=== PATIENT | female | born 1975 | race Two or more races ===

== ENCOUNTER 2016-04-26 19:57 | Emergency (ER) | payer MEDICAID, OTHER ==
[~2016-04-26] VITALS: Ht 170.2 cm; Wt 127.0 kg
[~2016-04-26 19:57] MED LIST: ADVIL200 M2 ORAL; ALBUTEROL SULF8.5 GM INH; AZITHROMYCIN250 MG ORAL; CLARITIN10 MG ORAL; IBUPROFEN600 MG ORAL; NAPHCON-A EYE D15 ML OP; NKM; NORCO 5-325 TA1 EACH PO; PENICILLIN V P250 MG PO; POLYTRIM OP SOL10 ML OPHTHALM; PREDNISONE20 MG ORAL; ZOFRAN4 MG ORAL
[2016-04-26 20:56] VITALS: BP 126/84
[2016-04-26] MEDS ORDERED: PREDNISONE20 MG ORAL (21:09)
[2016-04-26] MEDS ORDERED: ALBUTEROL SULF8.5 GM INH (21:09)
[2016-04-26] MEDS ORDERED: PROMETHAZINE-C118 M1 ORAL (21:09)
[2016-04-26] MEDS ORDERED: AZITHROMYCIN250 MG ORAL (21:09)
[2016-04-26 21:10] VITALS: BP 126/84
--- NOTE | 2016-04-27 03:58 | Emergency Room Report ---
History of Present Illness General Chief Complaint: Upper Respiratory Illness Source: Patient Present Illness HPI 41-year-old female presents ED complaining of cough x3 weeks. States cough is productive with yellowish phlegm. States she is trying multiple over-the- counter medications without relief. Notes intermittent fevers and chills. Denies shortness of breath. Denies ear ache or sore throat. Notes soreness in chest worse with coughing. Pain is 7/10, dull, nonradiating. No other aggravating or relieving factors. Denies any other associated symptoms Allergies: Coded Allergies: No Known Allergies (Unverified , 02/19/13) Patient History Past Medical History: none Past Surgical History: none Pertinent Family History: none Social History: Denies: alcohol use, drug use, smoking Last Menstrual Period: 04/01/16 Now: No Immunizations: UTD Reviewed Nursing Documentation: PMH: Agreed, PSxH: Agreed Nursing Documentation-PMH Past Medical History: No Stated History Review of Systems All Other Systems: negative except mentioned in HPI Physical Exam Vital Signs Date Time Temp Pulse Resp B/P Pulse Ox O2 Delivery O2 Flow Rate FiO2 04/26/16 20:55 98.2 87 17 126/84 96 Room Air Sp02 EP Interpretation: reviewed, normal General Appearance: no apparent distress, alert, GCS 15, non-toxic Head: normocephalic, atraumatic Eyes: bilateral eye PERRL, bilateral eye normal inspection ENT: hearing grossly normal, normal pharynx, no angioedema, normal voice Neck: full range of motion, supple/symm/no masses Respiratory: chest non-tender, lungs clear, normal breath sounds, speaking full sentences Cardiovascular #1: regular rate, rhythm, no edema Cardiovascular #2: 2+ carotid (R), 2+ carotid (L), 2+ radial (R), 2+ radial (L) , 2+ dorsalis pedis (R), 2+ dorsalis pedis (L) Gastrointestinal: normal bowel sounds, non tender, soft, non-distended, no guarding, no rebound Rectal: deferred Genitourinary: normal inspection, no CVA tenderness Musculoskeletal: back normal, gait/station normal, normal range of motion, non- tender Neurologic: alert, oriented x3, responsive, motor strength/tone normal, sensory intact, speech normal Psychiatric: judgement/insight normal, memory normal, mood/affect normal, no suicidal/homicidal ideation Reflexes: 3+ bicep (R), 3+ bicep (L), 3+ tricep (R), 3+ tricep (L), 3+ knee (R) , 3+ knee (L) Skin: normal color, no rash, warm/dry, well hydrated Lymphatic: no adenopathy Medical Decision Making Diagnostic Impression: Primary Impression: Atypical pneumonia ER Course Hospital Course 41-year-old female presents to ED complaining of cough x 3 weeks Differential diagnoses include: URI, pharyngitis, otitis media, asthma Clinical course Patient placed on stretcher. After initial history, physical exam reveals a female in no acute distress. Bilateral TM unremarkable. No pharyngeal erythema. No tonsillar exudates. No lymphadenopathy. lungs clear. abdomen soft. Given persistent symptoms x3 weeks we will treat his atypical pneumonia Diagnosis - atypical pneumonia Stable and discharged home with Rx Lalitha. Instructed to followup with PMD. Return to ED if symptoms recur or worsen Last Vital Signs Date Time Temp Pulse Resp B/P Pulse Ox O2 Delivery O2 Flow Rate FiO2 04/26/16 20:55 98.2 87 17 126/84 96 Room Air Status: improved Disposition: HOME, SELF-CARE Condition: Stable Scripts Codeine/Promethazine Hcl* (PROMETHAZINE-CODEINE SYRUP*) 118 Ml Syrup 5 ML ORAL Q6H Y for For Cough, #118 ML 0 Refills Prov: DEVONTE COE M.D. 04/26/16 Prednisone* (PREDNISONE*) 20 Mg Tablet 40 MG ORAL DAILY, #10 TAB Prov: DEVONTE COE M.D. 04/26/16 Albuterol Sulfate* (ALBUTEROL SULFATE MDI*) 8.5 Gm Hfa.aer.ad 2 PUFF INH Q6H, #1 EA 0 Refills Prov: DEVONTE COE M.D. 04/26/16 Azithromycin* (ZITHROMAX*) 250 Mg Tablet 250 MG ORAL DAILY, #6 TAB 0 Refills Take two tablets by mouth today, then take one tablet by mouth daily for four days Prov: DEVONTE COE M.D. 04/26/16 Referrals: [facility]ERR[facility] (PCP) Patient Instructions: Community-Acquired Pneumonia, Adult, [id number] DEVONTE COE M.D. Apr 27, 2016 03:58
== END 2016-04-26 21:10 | disposition home or self-care (01) ==
LOC: EMR 21:03
DX: J18.9 Pneumonia, unspecified organism (principal)
CPT/HCPCS: 99284

== ENCOUNTER 2016-12-24 18:50 | Emergency (ER) | payer MEDICAID, OTHER ==
[~2016-12-24] VITALS: Ht 170.2 cm; Wt 127.0 kg
[~2016-12-24 18:50] MED LIST changes: +PROMETHAZINE-C118 M1 ORAL
[2016-12-24] MEDS ORDERED: LORATADINE10 M2 PO (19:45)
[2016-12-24] MEDS ORDERED: BROMFED DM COU118 ML PO (19:45)
[2016-12-24] MEDS ORDERED: ALBUTEROL SULF8.5 GM INH (19:45)
[2016-12-24] MEDS ORDERED: FLONASE ALLERG9.9 ML NS (19:45)
--- NOTE | 2016-12-24 19:46 | Emergency Room Report ---
History of Present Illness General Chief Complaint: Upper Respiratory Illness Source: Patient Present Illness HPI 41 y/o female c/o URI sxs x several days. Assoc sxs include nasal congestion, rhinorrhea, sore throat, post nasal drip, bodyaches, chills, and cough due to tickle in the throat. States they have take robitussin without improvement of symptoms. Denies any current n/v/f/c/d, abd pain, back pain, neck pain, photophobia, phonophobia, CP, SOB or headache. Allergies: Coded Allergies: No Known Allergies (Unverified , 02/19/13) Patient History Past Medical History: see triage record Past Surgical History: none Pertinent Family History: none Last Menstrual Period: dec 18 Now: No Immunizations: UTD Reviewed Nursing Documentation: PMH: Agreed, PSxH: Agreed Nursing Documentation-PMH Past Medical History: No Stated History Review of Systems All Other Systems: negative except mentioned in HPI Physical Exam Vital Signs Date Time Temp Pulse Resp B/P (MAP) Pulse Ox O2 Delivery O2 Flow Rate FiO2 12/24/16 18:58 98.2 97 16 134/77 95 Room Air Sp02 EP Interpretation: reviewed, normal General Appearance: no apparent distress, alert, GCS 15, non-toxic Head: normocephalic, atraumatic Eyes: bilateral eye normal inspection, bilateral eye PERRL ENT: hearing grossly normal, normal pharynx, no angioedema, normal voice Neck: full range of motion, supple/symm/no masses Respiratory: chest non-tender, lungs clear, normal breath sounds, speaking full sentences, other - mild wheeze present Cardiovascular #1: regular rate, rhythm, no edema Musculoskeletal: digits/nails normal, gait/station normal Neurologic: alert, oriented x3, responsive, motor strength/tone normal, sensory intact, speech normal Psychiatric: judgement/insight normal, memory normal, mood/affect normal, no suicidal/homicidal ideation Medical Decision Making PA Attestation Dr. Fine is my supervising physician with whom patient management has been discussed with. Diagnostic Impression: Primary Impression: URI with cough and congestion ER Course Pt. presents to the ED c/o of cough and congestion Ddx considered but are not limited to bronchitis, pneumonia, viral upper respiratory tract infection Vital signs: are WNL, pt. is afebrile H&PE are most consistent with viral upper respiratory tract infection ORDERS: none required at this time, the diagnosis is clinical ED INTERVENTIONS: None required at this time. DISCHARGE: At this time pt. is stable for d/c to home. Will provide printed patient care instructions, and any necessary prescriptions. Care plan and follow up instructions have been discussed with the patient prior to discharge. Last Vital Signs Date Time Temp Pulse Resp B/P (MAP) Pulse Ox O2 Delivery O2 Flow Rate FiO2 12/24/16 18:58 98.2 97 16 134/77 95 Room Air Disposition: HOME, SELF-CARE Condition: Stable Scripts D-Methorphan Hb/P-Epd Hcl/Bpm (BROMFED DM COUGH SYRUP) 118 Ml Syrup 5 ML PO QHS for 10 Days, #120 ML Prov: CHRISTA VARGAS.A. 12/24/16 Loratadine (LORATADINE) 10 Mg Tablet 10 MG PO DAILY for 14 Days, #14 TAB Prov: CHRISTA VARGAS.A. 12/24/16 Fluticasone Propionate (Flonase Allergy Relief) 9.9 Ml [place].susp 2 SPRAYS NS DAILY for 7 Days, #10 ML Prov: CHRISTA VARGAS.A. 12/24/16 Albuterol Sulfate* (ALBUTEROL SULFATE MDI*) 8.5 Gm Hfa.aer.ad 2 PUFF INH Q4H, #1 INH 0 Refills Prov: CHRISTA VARGAS P.A. 12/24/16 Patient Instructions: Upper Respiratory Infection, Adult Additional Instructions: Take medication as directed. Drink plenty of fluids which include Gatorade and water. Get plenty of rest. Avoid taking medications on an empty stomach. If you have cough avoid dairy and cold beverages. If you have a fever, headache or body aches please take [id number] tylenol/motrin/advil unless a prescription for these symptoms have been given. If your symptoms are worsening or you have shortness or breath, severe headaches or chest pain, please call 911 or go to the ER. CHRISTA VARGAS Dec 24, 2016 19:46
[2016-12-24 19:54] VITALS: BP 134/77
[2016-12-24 20:06] VITALS: BP 134/77
== END 2016-12-24 20:10 | disposition home or self-care (01) ==
LOC: EMR 20:08
DX: J06.9 Acute upper respiratory infection, unspecified (principal)
CPT/HCPCS: 99284

== ENCOUNTER 2017-01-21 12:09 | Emergency (ER) | payer MEDICAID, OTHER ==
[~2017-01-21] VITALS: Ht 170.2 cm; Wt 127.0 kg
[~2017-01-21 12:09] MED LIST changes: +BROMFED DM COU118 ML PO; +FLONASE ALLERG9.9 ML NS; +LORATADINE10 M2 PO
[2017-01-21] MEDS ORDERED: Albuterol ud Inhalation HHN ONE (12:30)
[2017-01-21] MEDS ORDERED: Ipratropium 0.02% Inh Soln 2.5ml UD HHN ONE (12:30)
[2017-01-21] MEDS ORDERED: PROMETHAZINE-C118 M1 ORAL (13:14)
[2017-01-21] MEDS ORDERED: PREDNISONE20 MG ORAL (13:14)
[2017-01-21] MEDS ORDERED: PROAIR HFA8.5 GM INH (13:14)
[2017-01-21 13:22] VITALS: BP 157/87
[2017-01-21 13:23] VITALS: BP 157/87
--- NOTE | 2017-01-21 14:44 | Emergency Room Report ---
History of Present Illness General Chief Complaint: Upper Respiratory Illness Source: Patient (ANDREW MENDOSA) Present Illness HPI The patient is a 41-year-old female presenting for wheezing and cough for the past 3 weeks. She denies history of asthma but states that she has been diagnosed with bronchitis this past year in symptoms have persisted on and off. She denies any sick contacts recent travel. She denies any fever or chills or other complaints including N, V, abd pain, rash (ANDREW MENDOSA.Marianne) Allergies: Coded Allergies: No Known Allergies (Unverified , 02/19/13) Patient History Past Medical History: see triage record Pertinent Family History: none Last Menstrual Period: 01/15/17 Now: No Reviewed Nursing Documentation: PMH: Agreed, PSxH: Agreed (ANDREW MENDOSA) Nursing Documentation-PMH Past Medical History: No Stated History (ANDREW MENDOSA) Review of Systems All Other Systems: negative except mentioned in HPI (ANDREW MENDOSA) Physical Exam Vital Signs Date Time Temp Pulse Resp B/P (MAP) Pulse Ox O2 Delivery O2 Flow Rate FiO2 01/21/17 12:15 98.1 121 22 145/60 98 Room Air Sp02 EP Interpretation: reviewed, normal General Appearance: no apparent distress, alert, GCS 15, non-toxic Head: normocephalic, atraumatic Eyes: bilateral eye normal inspection, bilateral eye PERRL ENT: hearing grossly normal, normal pharynx, no angioedema, normal voice Neck: full range of motion, supple/symm/no masses Respiratory: decreased breath sounds, wheezing Cardiovascular #1: regular rate, rhythm, no edema Gastrointestinal: normal bowel sounds, non tender, soft, non-distended, no guarding, no rebound Musculoskeletal: back normal, gait/station normal, normal range of motion, non- tender Neurologic: alert, oriented x3, responsive, motor strength/tone normal, sensory intact, speech normal Psychiatric: judgement/insight normal, memory normal, mood/affect normal, no suicidal/homicidal ideation Skin: normal color, no rash, warm/dry, well hydrated (ANDREW MENDOSA) Medical Decision Making PA Attestation Dr. Santamaria is my supervising physician. Patient management was discussed with my supervising physician (ANDREW MENODSA) Diagnostic Impression: Primary Impression: Asthma Qualified Codes: J45.901 - Unspecified asthma with (acute) exacerbation ER Course The patient is a 41-year-old female presenting for wheezing and cough for the past 3 weeks Differential diagnoses considered but not limited to: Asthma exacerbation, bronchitis, pneumonia, anxiety Physical exam: Afebrile. Pt is tachycardic. No apparent distress HEENT exam is unremarkable Lungs: Decreased breath sounds bilaterally with some wheezing. Chest is nontender. No respiratory distress. No accessory muscle use. The patient was given a breathing treatment and is feeling much better. Lungs sounds have improved. CXR unremarkable Patient is discharged home with a prescription for albuterol, short course of oral steroids, and cough med and will followup with PMD. ER precautions are given (ANDREW MENDOSA) Chest X-Ray Diagnostic Results Chest X-Ray Diagnostic Results : Chest X-Ray Ordered: Yes # of Views/Limited/Complete: 1 View Indication: Other - cough EP Interpretation: Yes PA Xray: Interpretation reviewed, by supervising MD, and agrees with findings. Interpretation: no consolidation, no effusion, no pneumothorax, no acute cardiopulmonary disease Impression: No acute disease Electronically Signed by: Andrew Mendosa PA-C (ANDREW MENDOSA) Chest X-Ray Diagnostic Results : Electronically Signed by: Rochelle documentation reviewed by me and is accurate, Jorge Santamaria MD. (Jorge Santamaria M.D.) Last Vital Signs Date Time Temp Pulse Resp B/P (MAP) Pulse Ox O2 Delivery O2 Flow Rate FiO2 01/21/17 13:23 98.1 124 19 157/87 97 Room Air Status: improved (ANDREW MENDOSA P.A.) Disposition: HOME, SELF-CARE Condition: Improved Scripts Codeine/Promethazine Hcl* (PROMETHAZINE-CODEINE SYRUP*) 118 Ml Syrup 5 ML ORAL Q6H Y for For Cough, #118 ML 0 Refills Prov: TERZIANJIMMIEY P.A. 01/21/17 Prednisone* (PREDNISONE*) 20 Mg Tablet 40 MG ORAL DAILY, #8 TAB Prov: TERZIANJIMMIEY P.A. 01/21/17 Albuterol Sulfate* (PROAIR HFA*) 8.5 Gm Hfa.aer.ad 2 PUFFS INH Q6H, #8.5 GM 0 Refills Prov: ANDREW MENDOSA 01/21/17 Patient Instructions: Asthma, Adult Additional Instructions: I discussed my findings with the patient. All questions and concerns have been answered. Treatment and medication compliance have been addressed. I advised the patient that they need to follow up with PMD in 3-5 days. Return to ED if symptoms worsen, new symptoms arise, or if needed for any reason. Patient verbalized understanding of discharge instructions. ANDREW MENDOSA Jan 21, 2017 14:44 Jorge Santamaria M.D. Jan 23, 2017 23:08
--- NOTE | 2017-01-22 10:10 | Diagnostic Imaging Report ---
Indication: COUGH Technique: XRAY CHEST 1 V Comparison: 01/19/2014. Findings: The cardiomediastinal silhouette is normal. The lungs are clear. There is no evidence of pleural fluid. The bones are unremarkable. Impression: Normal chest.
== END 2017-01-21 13:22 | disposition home or self-care (01) ==
LOC: EMR 12:37
DX: J45.909 Unspecified asthma, uncomplicated (principal)
CPT/HCPCS: 71010; 99284

== ENCOUNTER 2017-01-25 14:07 | Emergency (ER) | payer OTHER ==
[~2017-01-25] VITALS: Ht 170.2 cm; Wt 127.0 kg
[~2017-01-25 14:07] MED LIST changes: +PROAIR HFA8.5 GM INH
[2017-01-25 14:40] VITALS: BP 117/73
--- NOTE | 2017-01-25 14:42 | Emergency Room Report ---
History of Present Illness General Chief Complaint: Upper Respiratory Illness Source: Patient Present Illness HPI 41-year-old female presents emergency department complaining of cough, feeling short of breath, fevers, wheezing and pain in the chest area since Monday. Patient has been taking prescription cough syrup, inhaler and oral prednisone for URI symptoms. Patient states that today she had a syncopal episode she felt lightheaded at work and fainted. Patient denies neck or back pain. Patient reports continued feeling dizzy and lightheaded Pt. reports decrease in appetite since feeling sick. reports chills. states she has productive cough on occasion. denies recent head trauma or fall, denies dysuria, frequency, low back pain or . Denies hx of anemia. Denies Palpitations, LOC, AMS, dizziness, Changes in Vision, Sensation, paresthesias, or a sudden severe headache. Allergies: Coded Allergies: No Known Allergies (Unverified , 02/19/13) Patient History Past Medical History: none Past Surgical History: none Pertinent Family History: none Now: No Reviewed Nursing Documentation: PMH: Agreed, PSxH: Agreed Nursing Documentation-PMH Past Medical History: No Stated History Review of Systems All Other Systems: negative except mentioned in HPI Physical Exam Vital Signs Date Time Temp Pulse Resp B/P (MAP) Pulse Ox O2 Delivery O2 Flow Rate FiO2 01/25/17 14:13 98.1 90 19 117/73 96 Room Air Sp02 EP Interpretation: reviewed, normal General Appearance: no apparent distress, alert, GCS 15, non-toxic Head: normocephalic, atraumatic Eyes: bilateral eye normal inspection, bilateral eye PERRL ENT: hearing grossly normal, normal voice Neck: full range of motion Respiratory: chest non-tender, lungs clear, normal breath sounds, wheezing Cardiovascular #1: regular rate, rhythm Gastrointestinal: non tender, soft Rectal: deferred Genitourinary: normal inspection, no CVA tenderness Musculoskeletal: back normal, gait/station normal, normal range of motion, non- tender Neurologic: alert, oriented x3, responsive, motor strength/tone normal, sensory intact, normal gait, speech normal, no pronator, grossly normal Skin: no rash, warm/dry, pallor - Pt is pale Lymphatic: no adenopathy Medical Decision Making PA Attestation Dr. coelho is my supervising Physician whom patient management has been discussed with. Diagnostic Impression: Primary Impression: Atypical pneumonia ER Course 41-year-old female presents emergency department complaining of cough, feeling short of breath, fevers, wheezing and pain in the chest area since Monday. Patient has been taking prescription cough syrup, inhaler and oral prednisone for URI symptoms. Patient states that today she had a syncopal episode she felt lightheaded at work and fainted. Patient denies neck or back pain. Patient reports continued feeling dizzy and lightheaded Pt. reports decrease in appetite since feeling sick. reports chills. states she has productive cough on occasion. denies recent head trauma or fall, denies dysuria, frequency, low back pain or . Denies hx of anemia. Denies Palpitations, LOC, AMS, dizziness, Changes in Vision, Sensation, paresthesias, or a sudden severe headache. Ddx considered but are not limited to PNA, Bronchitis, dehydration, dysrhythmia , hypoglycemia, hypovolemia, intracranial process, vasovagal. Vital signs: are WNL, pt. is afebrile H&PE are most consistent with atypical pneumonia will do ekg, cxr and give fluids and breathing treatmetn. ORDERS: -12-lead EKG:-: 85 BPM NSR - no acute ST changes reviewed by Dr. De Anda , this interpretation was scribed by DORINDA Banks -CBC, CMP: Unremarkable/ WNL -CXR: WNL ED INTERVENTIONS: -1000 mL normal saline bolus IV - Albuterol HHN -Xopidex HHN -Prednisone 60mg PO DISCHARGE: At this time pt. is stable for d/c to home. Will provide printed patient care instructions, and any necessary prescriptions. Care plan and follow up instructions have been discussed with the patient prior to discharge. Labs Test 01/25/17 15:30 White Blood Count 7.2 K/UL (4.8-10.8) Red Blood Count 4.95 M/UL (4.20-5.40) Hemoglobin 14.6 G/DL (12.0-16.0) Hematocrit 47.6 % (37.0-47.0) Mean Corpuscular Volume 96 FL (80-99) Mean Corpuscular Hemoglobin 29.5 PG (27.0-31.0) Mean Corpuscular Hemoglobin Concent 30.7 G/DL (32.0-36.0) Red Cell Distribution Width 12.8 % (11.6-14.8) Platelet Count 145 K/UL (150-450) Mean Platelet Volume 12.3 FL (6.5-10.1) Neutrophils (%) (Auto) 68.2 % (45.0-75.0) Lymphocytes (%) (Auto) 22.0 % (20.0-45.0) Monocytes (%) (Auto) 8.1 % (1.0-10.0) Eosinophils (%) (Auto) 0.1 % (0.0-3.0) Basophils (%) (Auto) 1.5 % (0.0-2.0) Sodium Level 141 MMOL/L (136-145) Potassium Level 3.9 MMOL/L (3.5-5.1) Chloride Level 104 MMOL/L (98-107) Carbon Dioxide Level 28 MMOL/L (21-32) Anion Gap 9 mmol/L (5-15) Blood Urea Nitrogen 13 mg/dL (7-18) Creatinine 0.8 MG/DL (0.55-1.30) Estimat Glomerular Filtration Rate > 60 mL/min (>60) Glucose Level 132 MG/DL (74-106) Calcium Level 9.0 MG/DL (8.5-10.1) Total Bilirubin 0.5 MG/DL (0.2-1.0) Aspartate Amino Transf (AST/SGOT) 49 U/L (15-37) Alanine Aminotransferase (ALT/SGPT) 56 U/L (12-78) Alkaline Phosphatase 101 U/L (46-116) Total Protein 7.3 G/DL (6.4-8.2) Albumin 2.9 G/DL (3.4-5.0) Globulin 4.4 g/dL Albumin/Globulin Ratio 0.7 (1.0-2.7) EKG Diagnostic Results Rate: normal Rhythm: NSR ST Segments: no acute changes ASA given to the pt in ED: No PA Scribe Text - EK BPM NSR - no acute ST changes reviewed by Dr. De Anda , this interpretation was scribed by DORINDA Banks Last Vital Signs Date Time Temp Pulse Resp B/P (MAP) Pulse Ox O2 Delivery O2 Flow Rate FiO2 12/13/17 14:13 98.1 90 19 117/73 96 Room Air Disposition: HOME, SELF-CARE Condition: Stable Scripts Albuterol Sulfate* (ALBUTEROL SULFATE MDI*) 8.5 Gm Hfa.aer.ad 2 PUFF INH Q4H, #1 INH 0 Refills Prov: Mini Banks 01/25/17 Ibuprofen* (MOTRIN*) 400 Mg Tablet 400 MG ORAL THREE TIMES A DAY, #20 TAB 0 Refills Prov: Mini Banks 01/25/17 Azithromycin* (ZITHROMAX*) 250 Mg Tablet 250 MG ORAL DAILY, #6 TAB Prov: Mini Banks 01/25/17 Patient Instructions: Upper Respiratory Infection, Adult Additional Instructions: Take medications as directed. Follow up with a Primary Care Provider in 3-5 days, even if your symptoms have resolved. --Please review list of primary care clinics, if you do not already have a primary care provider Return sooner to ED if new symptoms occur, or current symptoms become worse. - Please note that this Emergency Department Report was dictated using [employer] technology software, occasionally this can lead to erroneous entry secondary to interpretation by the dictation equipment. Mini Banks Jan 25, 2017 14:42
[2017-01-25 16:16] LABS: BASOPHILS % (AUTO) 1.5 % (0.0-2.0); EOSINOPHILS % (AUTO) 0.1 % (0.0-3.0); MEAN CORPUSCULAR HEMOGLOBIN 29.5 PG (27.0-31.0); MEAN CORPUSCULAR HGB CONC 30.7 G/DL (32.0-36.0); MEAN CORPUSCULAR VOLUME 96 FL (80-99); MEAN PLATELET VOLUME 12.3 FL (6.5-10.1); MONOCYTES % (AUTO) 8.1 % (1.0-10.0); NEUTROPHILS % (AUTO) 68.2 % (45.0-75.0); PLATELET COUNT 145 K/UL (150-450); RED BLOOD COUNT 4.95 M/UL (4.20-5.40); RED CELL DISTRIBUTION WIDTH 12.8 % (11.6-14.8); WHITE BLOOD COUNT 7.2 K/UL (4.8-10.8)
[2017-01-25 16:21] LABS: ANION GAP 9 mmol/L (5-15); CARBON DIOXIDE 28 MMOL/L (21-32); CHLORIDE 104 MMOL/L (98-107); CREATININE 0.8 MG/DL (0.55-1.30); GLOMERULAR FILTRATION RATE > 60 mL/min (>60); POTASSIUM 3.9 MMOL/L (3.5-5.1); SODIUM 141 MMOL/L (136-145)
[2017-01-25 16:26] LABS: ALANINE AMINOTRANSFERASE 56 U/L (12-78); ALBUMIN/GLOBULIN RATIO 0.7 (1.0-2.7); ASPARTATE AMINO TRANSFERASE 49 U/L (15-37); TOTAL PROTEIN 7.3 G/DL (6.4-8.2)
[2017-01-25] MEDS ORDERED: Albuterol ud Inhalation HHN ONE (17:30)
[2017-01-25] MEDS ORDERED: ZITHROMAX250 MG ORAL (17:45)
[2017-01-25] MEDS ORDERED: ALBUTEROL SULF8.5 GM INH (17:45)
[2017-01-25] MEDS ORDERED: IBUPROFEN400 MG ORAL (17:45)
[2017-01-25] MEDS ORDERED: Levalbuterol Inh UD 1.25mg/0.5ml HHN ONE (18:15)
[2017-01-25 19:09] VITALS: BP 122/75
--- NOTE | 2017-01-26 05:02 | Diagnostic Imaging Report ---
Indication: Chest pain Technique: One view of the chest Comparison: 01/21/2017 Findings: Body habitus limits evaluation. Lung bases are clear. The heart size is normal. No significant change Impression: No acute process
--- NOTE | 2017-02-06 19:23 | Cardiology Report ---
APPROVED REPORT EKG Measurement Heart [id number] Normal sinus rhythm Normal ECG
== END 2017-01-25 19:09 | disposition home or self-care (01) ==
LOC: EMR 14:30
DX: J18.9 Pneumonia, unspecified organism (principal)
CPT/HCPCS: 36415; 71010; 80053; 85025; 93005; 94640; 94664; 96360; 99284; J7644

== ENCOUNTER 2017-07-06 20:07 | Emergency (ER) | payer OTHER ==
[~2017-07-06] VITALS: Ht 170.2 cm; Wt 127.0 kg
[~2017-07-06 20:07] MED LIST changes: +IBUPROFEN400 MG ORAL; +ZITHROMAX250 MG ORAL
[2017-07-06] MEDS ORDERED: Albuterol ud Inhalation HHN ONE (20:30)
[2017-07-06] MEDS ORDERED: Ipratropium 0.02% Inh Soln 2.5ml UD HHN ONE (20:30)
[2017-07-06] MEDS ORDERED: ALBUTEROL SULF8.5 GM INH (21:07)
[2017-07-06] MEDS ORDERED: PROMETHAZINE-C118 M1 ORAL (21:07)
[2017-07-06] MEDS ORDERED: PREDNISONE20 MG ORAL (21:07)
[2017-07-06 21:24] VITALS: BP 132/89
[2017-07-06 21:25] VITALS: BP 134/86
--- NOTE | 2017-07-06 21:38 | Emergency Room Report ---
History of Present Illness General Chief Complaint: Upper Respiratory Illness Source: Patient Present Illness HPI 42-year-old female presents ED complaining of cough and wheezing times one day. Cough is dry. History of asthma. Denies fevers or chills. Denies chest pain. Denies sick contacts or recent travel. No other aggravating relieving factors. Denies any other associated symptoms Allergies: Coded Allergies: No Known Allergies (Unverified , 07/06/17) Patient History Past Medical History: asthma Past Surgical History: none Pertinent Family History: none Social History: Denies: smoking, alcohol use, drug use Last Menstrual Period: 06/08/2017 Now: No Immunizations: UTD Reviewed Nursing Documentation: PMH: Agreed; PSxH: Agreed Nursing Documentation-PMH Past Medical History: No Stated History Review of Systems All Other Systems: negative except mentioned in HPI Physical Exam Vital Signs Date Time Temp Pulse Resp B/P (MAP) Pulse Ox O2 Delivery O2 Flow Rate FiO2 07/06/17 20:10 98.1 103 16 134/86 95 98.1 07/06/17 20:24 Room Air Sp02 EP Interpretation: reviewed, normal General Appearance: no apparent distress, alert, GCS 15, non-toxic, obese Head: normocephalic, atraumatic Eyes: bilateral eye normal inspection, bilateral eye PERRL ENT: hearing grossly normal, normal pharynx, no angioedema, normal voice Neck: full range of motion, supple/symm/no masses Respiratory: chest non-tender, speaking full sentences, wheezing Cardiovascular #1: regular rate, rhythm, no edema Cardiovascular #2: 2+ carotid (R), 2+ carotid (L), 2+ radial (R), 2+ radial (L) , 2+ dorsalis pedis (R), 2+ dorsalis pedis (L) Gastrointestinal: normal bowel sounds, non tender, soft, non-distended, no guarding, no rebound Rectal: deferred Genitourinary: normal inspection, no CVA tenderness Musculoskeletal: back normal, gait/station normal, normal range of motion, non- tender Neurologic: alert, oriented x3, responsive, motor strength/tone normal, sensory intact, speech normal Psychiatric: judgement/insight normal, memory normal, mood/affect normal, no suicidal/homicidal ideation Reflexes: 3+ bicep (R), 3+ bicep (L), 3+ tricep (R), 3+ tricep (L), 3+ knee (R) , 3+ knee (L) Skin: normal color, no rash, warm/dry, well hydrated Lymphatic: no adenopathy Medical Decision Making Diagnostic Impression: Primary Impression: Upper respiratory infection Qualified Codes: J06.9 - Acute upper respiratory infection, unspecified ER Course Hospital Course 42-year-old female presents to ED complaining of cough, wheezing Differential diagnoses include: URI, bronchitis, asthma/COPD, pneumonia Clinical course Patient placed on stretcher. After initial history and physical I ordered prednisone and nebulizer treatment. Upon reassessment patient states cough and symptoms have improved. patient is safe for discharge Diagnosis - URI Stable and discharged home with prescriptions for Rx prednisone, promethazine/ codeine, albuterol. Instructed to followup with PMD. Return to ED if symptoms recur or worsen Last Vital Signs Date Time Temp Pulse Resp B/P (MAP) Pulse Ox O2 Delivery O2 Flow Rate FiO2 07/06/17 21:25 98.1 18 134/86 99 Room Air 98.1 07/06/17 21:24 88 Status: improved Disposition: HOME, SELF-CARE Condition: Stable Scripts Codeine/Promethazine Hcl* (PROMETHAZINE-CODEINE SYRUP*) 118 Ml Syrup 5 ML ORAL Q6H PRN for For Cough, #118 ML 0 Refills Prov: Vic De Anda MD 07/06/17 Prednisone* (PREDNISONE*) 20 Mg Tablet 40 MG ORAL DAILY, #10 TAB Prov: Vic De Anda MD 07/06/17 Albuterol Sulfate* (ALBUTEROL SULFATE MDI*) 8.5 Gm Hfa.aer.ad 2 PUFF INH Q6H, #1 EA 0 Refills Prov: Vic De Anda MD 07/06/17 Referrals: [facility]ERR[facility] (PCP) Patient Instructions: Upper Respiratory Infection, Adult Vic De Anda MD July 06, 2017 21:38
== END 2017-07-06 21:26 | disposition home or self-care (01) ==
LOC: EMR 20:23
DX: J06.9 Acute upper respiratory infection, unspecified (principal)
CPT/HCPCS: 94640; 94664; 99284; J7512

== ENCOUNTER 2017-07-29 23:42 | Emergency (ER) | payer MEDICAID, OTHER ==
[~2017-07-29] VITALS: Ht 170.2 cm; Wt 127.0 kg
[2017-07-30] MEDS ORDERED: Ipratropium 0.02% Inh Soln 2.5ml UD HHN ONE
[2017-07-30] MEDS ORDERED: Albuterol ud Inhalation HHN ONE
[2017-07-30 00:34] VITALS: BP 139/82
[2017-07-30] MEDS ORDERED: ALBUTEROL SULF8.5 GM INH (00:44)
[2017-07-30] MEDS ORDERED: PREDNISONE20 MG ORAL (00:44)
[2017-07-30 00:50] VITALS: BP 139/82
--- NOTE | 2017-07-30 01:35 | Emergency Room Report ---
History of Present Illness General Chief Complaint: Dyspnea/Respdistress Source: Patient Present Illness HPI 42-year-old female presents ED for evaluation. Patient complaining of shortness of breath and wheezing 2 days. History of asthma. Denies any cough. Denies any chest pain. Denies any fevers or chills. Denies sick contacts or recent travel. No other aggravating relieving factors. Denies any other associated symptoms Allergies: Coded Allergies: No Known Allergies (Unverified , 07/06/17) Patient History Past Medical History: asthma Past Surgical History: none Pertinent Family History: none Social History: Denies: smoking, alcohol use, drug use Last Menstrual Period: 07/08/17 Now: No Immunizations: UTD Reviewed Nursing Documentation: PMH: Agreed; PSxH: Agreed Nursing Documentation-PMH Past Medical History: No History, Except For Hx Asthma: Yes Review of Systems All Other Systems: negative except mentioned in HPI Physical Exam Vital Signs Date Time Temp Pulse Resp B/P (MAP) Pulse Ox O2 Delivery O2 Flow Rate FiO2 07/29/17 23:48 98.4 107 22 135/73 96 Room Air 98.4 07/30/17 00:07 21 Sp02 EP Interpretation: reviewed, normal General Appearance: no apparent distress, alert, GCS 15, non-toxic Head: normocephalic, atraumatic Eyes: bilateral eye normal inspection, bilateral eye PERRL ENT: hearing grossly normal, normal pharynx, no angioedema, normal voice Neck: full range of motion, supple/symm/no masses Respiratory: chest non-tender, speaking full sentences, wheezing Cardiovascular #1: regular rate, rhythm, no edema Cardiovascular #2: 2+ carotid (R), 2+ carotid (L), 2+ radial (R), 2+ radial (L) , 2+ dorsalis pedis (R), 2+ dorsalis pedis (L) Gastrointestinal: normal bowel sounds, non tender, soft, non-distended, no guarding, no rebound Rectal: deferred Genitourinary: normal inspection, no CVA tenderness Musculoskeletal: back normal, gait/station normal, normal range of motion, non- tender Neurologic: alert, oriented x3, responsive, motor strength/tone normal, sensory intact, speech normal Psychiatric: judgement/insight normal, memory normal, mood/affect normal, no suicidal/homicidal ideation Reflexes: 3+ bicep (R), 3+ bicep (L), 3+ tricep (R), 3+ tricep (L), 3+ knee (R) , 3+ knee (L) Skin: normal color, no rash, warm/dry, well hydrated Lymphatic: no adenopathy Medical Decision Making Diagnostic Impression: Primary Impression: bronchitis ER Course Hospital Course 42-year-old female presents to ED complaining of wheezing, SOB Differential diagnoses include: URI, bronchitis, asthma/COPD, pneumonia Clinical course Patient placed on stretcher. After initial history and physical I ordered prednisone and nebulizer treatment. Upon reassessment patient states symptoms have improved. Findings consistent with bronchitis. Diagnosis - bronchitis Stable and discharged home with prescriptions for Rx prednisone, albuterol. Instructed to followup with PMD. Return to ED if symptoms recur or worsen Last Vital Signs Date Time Temp Pulse Resp B/P (MAP) Pulse Ox O2 Delivery O2 Flow Rate FiO2 07/30/17 00:50 98.4 100 18 139/82 96 Room Air 21 98.4 Status: improved Disposition: HOME, SELF-CARE Condition: Stable Scripts Prednisone* (PREDNISONE*) 20 Mg Tablet 40 MG ORAL DAILY, #10 TAB Prov: Vic De Anda MD 07/30/17 Albuterol Sulfate* (ALBUTEROL SULFATE MDI*) 8.5 Gm Hfa.aer.ad 2 PUFF INH Q6H, #1 EA 0 Refills Prov: Vic De Anda MD 07/30/17 Referrals: [facility] (PCP) Patient Instructions: Acute Bronchitis, [id number] Vic De Anda MD Jul 30, 2017 01:35
== END 2017-07-30 00:50 | disposition home or self-care (01) ==
LOC: EMR 23:55
DX: J45.909 Unspecified asthma, uncomplicated (principal)
CPT/HCPCS: 94640; 94664; 99284; J7512

== ENCOUNTER 2018-10-22 20:07 | Emergency (ER) | payer MEDICAID ==
[~2018-10-22] VITALS: Ht 170.2 cm; Wt 136.1 kg
[2018-10-22 20:30] VITALS: BP 138/82
--- NOTE | 2018-10-22 20:30 | NUR ---
ED Nurse Note: Patient walked into ED c/o abscess located on her lower right leg that she first noticed this monday, complains of 5/10 pain. patient is alert and oriented x4, presents with no fever
--- NOTE | 2018-10-22 21:08 | Emergency Room Report ---
History of Present Illness General Chief Complaint: Skin Rash/Abscess Source: Patient Present Illness HPI Patient has a 43-year-old female presents for itchiness to the left anterior leg. Present for 2 days. She has been using Neosporin without any improvement. Patient denies any fever. She has not had any change in her blood sugar. She reports having significant itchiness to the area. She is type II diabetic and takes metformin. Patient denies any dizziness or leg swelling. Allergies: Coded Allergies: No Known Allergies (Unverified , 07/06/17) Patient History Past Medical History: see triage record Last Menstrual Period: 09/22/18 Reviewed Nursing Documentation: PMH: Agreed; PSxH: Agreed Nursing Documentation-PMH Hx Asthma: Yes Hx Diabetes: Yes Review of Systems All Other Systems: negative except mentioned in HPI Physical Exam Vital Signs Date Time Temp Pulse Resp B/P (MAP) Pulse Ox O2 Delivery O2 Flow Rate FiO2 10/22/18 20:25 98.1 78 18 145/91 (109) 95 Room Air General Appearance: well appearing, no apparent distress, alert, GCS 15, obese Head: normocephalic, atraumatic ENT: hearing grossly normal, normal voice Neck: full range of motion, supple Respiratory: no respiratory distress, speaking full sentences Cardiovascular #1: normal inspection Musculoskeletal: no calf tenderness Neurologic: normal inspection, alert, oriented x3, responsive, 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 Differential diagnosis include was not limited to cellulitis, contact dermatitis, spider bite , abscess among others. Patient has a benign exam and does not appear to require any imaging or laboratory testing at this time.Patient be given prescription for topical steroids as well as oral antibiotics. Patient was given oral Keflex in the emergency department. She appears to be stable for outpatient trial. Patient advised to discontinue use of Neosporin. Patient was advised to return if she began having worsening redness to her leg or other concerns. Last Vital Signs Date Time Temp Pulse Resp B/P (MAP) Pulse Ox O2 Delivery O2 Flow Rate FiO2 10/22/18 20:25 98.1 78 18 145/91 (109) 95 Room Air Status: improved Disposition: HOME, SELF-CARE Condition: Stable Scripts Doxycycline Hyclate* (VIBRAMYCIN*) 100 Mg Capsule 100 MG ORAL EVERY 12 HOURS, #14 CAP 0 Refills Prov: Alejandro Fall MD 10/22/18 Cephalexin* (KEFLEX*) 500 Mg Capsule 500 MG ORAL EVERY 6 HOURS, #28 CAP Prov: Alejandro Fall MD 10/22/18 Hydrocortisone Acetate 1% Onit (HYDROCORTISONE 1% OINT) Y Oint 28 GM TP DAILY, #30 GM Prov: Alejandro Fall MD 10/22/18 Alejandro Fall MD Oct 22, 2018 21:08
[2018-10-22] MEDS ORDERED: VIBRAMYCIN100 MG ORAL (21:10)
[2018-10-22] MEDS ORDERED: CEPHALEXIN500 MG ORAL (21:10)
[2018-10-22] MEDS ORDERED: HYDROCORTISONE28 G2 TP (21:10)
[2018-10-22 21:15] VITALS: BP 125/80
[2018-10-22] MEDS ORDERED: Cephalexin 500mg cap ORAL ONE (21:15)
--- NOTE | 2018-10-22 21:15 | NUR ---
ER DISCHARGE NOTE: Patient is cleared to be discharged per ERMD, pt is aox4, on room air, with stable vital signs. pt was given dc and prescription instructions, pt was able to verbalize understanding, pt id band removed without complications. pt is able to ambulate with steady gait. pt took all belongings.
== END 2018-10-22 21:15 | disposition home or self-care (01) ==
LOC: EMR 20:58
DX: L03.116 Cellulitis of left lower limb (principal); J45.909 Unspecified asthma, uncomplicated; E11.9 Type 2 diabetes mellitus without complications; Z79.84 Long term (current) use of oral hypoglycemic drugs
CPT/HCPCS: 99282

== ENCOUNTER 2020-04-07 19:17 | Emergency (ER) | payer MEDICAID ==
[~2020-04-07] VITALS: Ht 170.2 cm; Wt 133.8 kg
[~2020-04-07 19:17] MED LIST changes: +AUGMENTIN 875-1 EAC1 ORAL; +CEPHALEXIN500 MG ORAL; +HYDROCORTISONE28 G2 TP; +METFORMIN HCL500 M1 ORAL; +VIBRAMYCIN100 MG ORAL
[2020-04-07 21:00] VITALS: BP 155/82
--- NOTE | 2020-04-07 21:00 | NUR ---
ED Nurse Note: Pt c/o SOB and persistant cough. Pt has been on antibiotics and finished them. Pt is ambulatory, AAO x4.
--- NOTE | 2020-04-07 21:17 | Emergency Room Report ---
History of Present Illness General Chief Complaint: Upper Respiratory Illness Source: Patient Present Illness HPI 45 YO female presents to the ED c/o dry cough and chest congestion x 3 weeks. Patient just finished a course of Z-Chente and has an inhaler. She was previously treated with inhaler, z-pack and casey tussin. Also treated with suspected GERD. pt. reports no relief. Patient reports that her symptoms of cough are throughout the day they are not just limited to nighttime only. Patient reports history of diabetes and asthma. She denies fevers and chills at this time. She denies mucus production. She is reporting having to use her inhaler more often than normal and is now out of her inhaler. She denies hemoptysis, dyspnea or feeling short of breath. She denies chest pain or palpitations. She reports that her diabetes is well controlled on oral Metformin that she takes once a day. 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 COVID-19 Screening: Negative COVID-19 COVID-19 Testing Source: clinic Patient History Past Medical History: see triage record Past Surgical History: none Pertinent Family History: none Now: No Reviewed Nursing Documentation: PMH: Agreed; PSxH: Agreed Nursing Documentation-PMH Past Medical History: No History, Except For Hx Asthma: Yes Hx Diabetes: Yes Review of Systems All Other Systems: negative except mentioned in HPI Physical Exam Vital Signs Date Time Temp Pulse Resp B/P (MAP) Pulse Ox O2 Delivery O2 Flow Rate FiO2 04/07/20 19:31 98.8 95 18 155/82 (106) 96 Room Air Sp02 EP Interpretation: reviewed, normal General Appearance: no apparent distress, alert, GCS 15, non-toxic Head: normocephalic, atraumatic Eyes: bilateral eye normal inspection, bilateral eye PERRL ENT: hearing grossly normal, normal voice Neck: full range of motion Respiratory: chest non-tender, no rhonchi, no respiratory distress, no accessory muscle use, speaking full sentences, wheezing - scant bilaterally Cardiovascular #1: regular rate, rhythm, no edema, normal capillary refill Gastrointestinal: non tender, soft Musculoskeletal: normal range of motion, gait/station normal, non-tender Neurologic: alert, motor strength/tone normal, oriented x3, sensory intact, responsive, speech normal Psychiatric: judgement/insight normal Skin: no rash, normal color Lymphatic: no adenopathy Medical Decision Making PA Attestation Dr. Solorio Is my supervising Physician whom patient management has been discussed with. Diagnostic Impression: Primary Impression: bronchitis ER Course 45 YO female presents to the ED c/o dry cough and chest congestion x 3 weeks. Patient just finished a course of Z-Chente and has an inhaler. She was previously treated with inhaler, z-pack and casey tussin. Also treated with suspected GERD. pt. reports no relief. Patient reports that her symptoms of cough are throughout the day they are not just limited to nighttime only. Patient reports history of diabetes and asthma. She denies fevers and chills at this time. She denies mucus production. She is reporting having to use her inhaler more often than normal and is now out of her inhaler. She denies hemoptysis, dyspnea or feeling short of breath. She denies chest pain or palpitations. She reports that her diabetes is well controlled on oral Metformin that she takes once a day. Ddx considered but are not limited to URI, pneumonia, PE, strep pharyngitis, meningitis, GERD, COVID-19 Vital signs: Pt.is afebrile VS are WNL H&PE are most consistent with bronchitis, with mild asthma flare. Patient is nontoxic in appearance in no acute respiratory distress. No stridor or evidence of impending airway compromise. ORDERS: -CXR: Unremarkable ED INTERVENTIONS: None required at this time. DISCHARGE: At this time pt. is stable for d/c to home. Will provide printed patient care instructions, and any necessary prescriptions. Care plan and follow up instructions have been discussed with the patient prior to discharge. Chest X-Ray Diagnostic Results Chest X-Ray Diagnostic Results : Chest X-Ray Ordered: Yes # of Views/Limited/Complete: 1 View Indication: Shortness of Breath EP Interpretation: Yes DORINDA Xray: Interpretation reviewed, by supervising MD, and agrees with findings. Interpretation: no consolidation, no effusion, no pneumothorax, no acute cardiopulmonary disease Impression: No acute disease Electronically Signed by: Mini Banks PA-C Last Vital Signs Date Time Temp Pulse Resp B/P (MAP) Pulse Ox O2 Delivery O2 Flow Rate FiO2 04/07/20 19:31 98.8 95 18 155/82 (106) 96 Room Air Disposition: HOME, SELF-CARE Condition: Stable Scripts Prednisone* (PREDNISONE*) 20 Mg Tablet 60 MG ORAL DAILY for 5 Days, #15 TAB Prov: Mini Banks 04/07/20 Benzonatate* (BENZONATATE*) 200 Mg Capsule 200 MG ORAL THREE TIMES A DAY for 10 Days, #30 PERLE Prov: Mini Banks 04/07/20 Referrals: Maribeth WALSH,REFERRING (PCP) Patient Instructions: Acute Bronchitis, [id number] Additional Instructions: Take medications as directed. Follow up with a Primary Care Provider in 3-5 days, even if your symptoms have resolved. --Please review list of primary care clinics, if you do not already have a primary care provider Return sooner to ED if new symptoms occur, or current symptoms become worse. - Please note that this Emergency Department Report was dictated using [employer] consultant technology software, occasionally this can lead to erroneous entry secondary to interpretation by the dictation equipment. Mini Banks Apr 07, 2020 21:17
[2020-04-07] MEDS ORDERED: PREDNISONE20 MG ORAL ×3 (21:32→22:09)
[2020-04-07] MEDS ORDERED: BENZONATATE200 MG ORAL (21:32)
--- NOTE | 2020-04-07 21:43 | NUR ---
ER DISCHARGE NOTE: Patient is cleared to be discharged per ER MD, pt is aaox4, on room air, with stable vital signs. pt was given d/c and prescription instructions, pt was able to verbalize understanding, pt id band removed. pt is able to ambulate with steady gait. pt took all belongings.
--- NOTE | 2020-04-08 09:49 | Diagnostic Imaging Report ---
Indication: Reason For Exam: PAIN Technique: XRAY Chest 1v Comparison:01/25/2017 Findings: Poor inspiration. The heart is normal in size. Bronchial wall thickening and interstitial opacities are noted bilaterally. There is a density superior to the left hilum which is ill-defined. No pleural fluid. Osseous structures are unremarkable. Impression: Diffuse interstitial change and bronchial wall thickening. This may be acute disease such as edema or inflammatory change or chronic disease. Density superior to the left hilum. This likely represents a focal infiltrate. Mass is not excluded. Better inspiration suggested.
== END 2020-04-07 21:44 | disposition home or self-care (01) ==
LOC: EMR 19:51
DX: J20.9 Acute bronchitis, unspecified (principal); E11.9 Type 2 diabetes mellitus without complications
CPT/HCPCS: 71045; Z7502; 99283